=== PATIENT | female | born 1995 | race Two or more races ===

== ENCOUNTER 2024-08-06 12:27 | Emergency (ER) | payer MEDICAID, OTHER ==
[~2024-08-06] VITALS: Ht 149.9 cm; Wt 56.5 kg
[2024-08-06 12:40] VITALS: BP 98/57
[2024-08-06 13:28] VITALS: PULSE 78; RESP 18; TEMP 98.5; O2SAT 98
--- NOTE | 2024-08-06 14:46 | ED.PDOC ---
History of Present Illness(SKN HPI Comments This is a 29-year-old female that comes in for suture removal from a dog bite. Patient states she was here on Wednesday because it was a lot of pus coming from the wound. She was started on antibiotics she still has a couple left. Now the pus has stopped.. Denies any fevers, or chills. 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 Pertinent SOFTWARE WRITER History Family History Family History: Reviewed,noncontributory to illness Social History Smoker: Non-Smoker Alcohol: Denies ETOH Use Drugs: Denies Drug Use Lives In: Home Constitutional: denies: chills, diaphoresis, fatigue, fever, malaise, sweats, weakness, others EENTM: denies: blurred vision, double vision, ear bleeding, ear discharge, ear drainage, ear pain, ear ringing, eye pain, eye redness, hearing loss, mouth pain, mouth swelling, nasal discharge, nose bleeding, nose congestion, nose pain, photophobia, tearing, throat pain, throat swelling, voice changes, others Respiratory: denies: cough, hemoptysis, orthopnea, SOB at rest, shortness of breath, SOB with excertion, stridor, wheezing, others Cardiovascular: denies: chest pain, dizzy spells, diaphoresis, Dyspnea on exertion, edema, irregular heart beat, left arm pain, lightheadedness, palpitations, PND, syncope, others Gastrointestinal: denies: abdomen distended, abdominal pain, blood streaked bowels, constipated, diarrhea, dysphagia, difficulty swallowing, hematemesis, melena, nausea, poor appetite, poor fluid intake, rectal bleeding, rectal pain, vomiting, others Genitourinary: denies: abnormal vagina bleeding, burning, dyspareunia, dysuria, flank pain, frequency, hematuria, incontinence, pain, , vagina discharge, urgency, others Neurological: denies: dizziness, fainting, headache, left sided numbness, left sided weakness, numbness, paresthesia, pre-existing deficit, right sided numbness, right sided weakness, seizure, speech problems, tingling, tremors, weakness, others Musculoskeletal: denies: back pain, gout, joint pain, joint swelling, muscle pain, muscle stiffness, neck pain, others Integumetry: reports: laceration (Left thumb wound) Allergic/Immunocompromised: denies: Difficulty Healing, Frequent Infections, Hives, Itching, others Hematologic/Lymphatic: denies: anemia, blood clots, easy bleeding, easy bruising, swollen glands, others Endocrine: denies: excessive hunger, excessive sweating, excessive thirst, excessive urination, flushing, intolerance to cold, intolerance to heat, unexplained weight gain, unexplained weight loss, others Psychiatric: denies: anxiety, bipolar disorder, depression, hopeless, panic disorder, schizophrenia, sleepless, suicidal, others Physical Exam General Appearance: No Apparent Distress, Normal HEENT: Normal ENT Inspection, PERRL/EOMI, Pharynx Normal Neck: Non-Tender, Normal Inspection Respiratory: Lungs Clear, Normal Breath Sounds Cardiovascular: Regular Rate/Rhythm Breast Exam: Deferred Gastrointestinal: Non Tender, Normal Bowel Sounds Genitalia: Deferred Pelvic: Deferred Rectal: Deferred Extremities: Other (Left thumb with sutures intact no signs of infection no drainage, no swelling) Neurologic: Alert, Normal Affect, Normal Mood Cerebellar Function: Normal Reflexes: NOT DONE Skin: Wounds (suture) Lymphatic: No Adenopathy Was a procedure done? Was a procedure done?: No X-Ray, Labs, Meds, VS Vital Signs Date Time Temp Pulse Resp B/P (MAP) Pulse Ox O2 Delivery O2 Flow Rate FiO2 08/06/24 13:28 78 18 98 Room Air 08/06/24 13:28 98.5 78 18 98 98.5 08/06/24 12:40 98.5 78 18 98/57 (71) 98 X-Ray, Labs, Meds, VS Comment Patient was seen and examined by me. Patient sutures were removed on the 1st attempt without any difficulty. No signs of infection noted. I gave the patient postprocedure instructions and what to do next. Time of 1ST Reevaluation: 14:41 Reevaluation 1ST: Improved Patient Education/Counseling: Diagnosis, Treatment, Prognosis, Need For Follow Up Family Education/Counseling: No Family Present Departure 1 Departure Time of Disposition: 14:42 Impression: Primary Impression: Encounter for removal of sutures Disposition: 01 HOME / SELF CARE / HOMELESS Condition: Good Written Prescriptions Continue to apply a bandage until the wound is completely healed You can apply lotion to the wound once he will to help soften the skin Please finish all the antibiotics Discharged With: Self Critical Care Note Critical Care Time?: No Stability Stability form required: BRYAN Shrestha Aug 06, 2024 14:46
== END 2024-08-06 14:46 | disposition home or self-care (01) ==
LOC: ER 12:27
DX: L03.012 Cellulitis of left finger (principal); Z48.02 Encounter for removal of sutures; Z98.890 Other specified postprocedural states; W54.0XXD Bitten by dog, subsequent encounter